=== PATIENT | female | born 1945 | race Caucasian/White ===

== ENCOUNTER 2018-06-16 08:00 | Day surgery (SDC) | payer MEDICARE, MEDICAID ==
[2018-06-16] MEDS ORDERED: Lactated Ringer's 500 ML IV ONE (08:22)
[2018-06-16 08:33] VITALS: O2SAT 100
[2018-06-16] MEDS ORDERED: Propofol 10 mg/ml Inj (20 ML) ONE (09:14)
[2018-06-16] MEDS ORDERED: Midazolam 2 MG/2 ML VIAL ONE (09:14)
[2018-06-16 09:49] VITALS: TEMP 98
[2018-06-16 10:14] VITALS: BP 113/57; PULSE 68; RESP 18
== END 2018-06-16 10:45 | disposition home or self-care (01) ==
LOC: H.ENDO 08:00
PROVIDERS: ATTEND Internal Medicine Gastroenterology
DX: Z12.11 Encounter for screening for malignant neoplasm of colon (principal); I10 Essential (primary) hypertension; K64.8 Other hemorrhoids; K57.30 Diverticulosis of large intestine without perforation or abscess without bleeding
CPT/HCPCS: 45378; J2001; J2250; J2704; J7120